=== PATIENT | male | born 1940 | race Caucasian/White ===

== ENCOUNTER → 2016-07-18 | Outpatient (CLI) | payer OTHER ==
[~2016-07-18] VITALS: Ht 177.8 cm; Wt 100.3 kg
[~2016-07-18] MED LIST: ASPI-232 PO; GLC/500 PO; LOSA50TA6 PO; SIMV80TA2 PO
[2016-07-18 13:03] VITALS: BP 155/78; PULSE 69; Ht 177.8 cm; Wt 100.3 kg
== END | disposition home or self-care (01) ==
LOC: C.NEUR 12:37
PROVIDERS: ATTEND Internal Medicine Pulmonary Disease
DX: G47.33 Obstructive sleep apnea (adult) (pediatric) (principal)

== ENCOUNTER → 2016-09-25 | Outpatient (CLI) | payer OTHER ==
[2016-09-26 06:22] LABS: ESTIMATED AVERAGE GLUCOSE 160 mg/dl; HA1C FLAG Normal (Normal)
== END | disposition home or self-care (01) ==
LOC: C.LAB1850 16:12
PROVIDERS: ATTEND Internal Medicine
DX: E11.9 Type 2 diabetes mellitus without complications (principal)

== ENCOUNTER → 2017-01-07 | Outpatient (CLI) | payer OTHER ==
[2017-01-07 13:19] LABS: BASO % 0.7 %; BASO ABS # 0.04 K/uL (0-0.2); COMPLETE YES; EOS % 5.4 %; HEMATOCRIT 44.6 % (42-52); LYMPH % 29.1 %; LYMPH ABS # 1.73 K/uL (1.2-3.4); MEAN CORPUSCULAR HEMOGLOBIN 31.2 pg (25-34); MEAN CORPUSCULAR HGB CONC 34.3 g/dl (32-36); MEAN PLATELET VOLUME 9.1 fL (7.4-10.4); MONO % 10.6 %; NEUT % 54.2 %; PLATELET COUNT 256 K/uL (130-400); WHITE BLOOD COUNT 5.95 K/uL (4.8-10.8)
[2017-01-07 13:34] LABS: URINE APPEARANCE CLEAR (CLEAR); URINE BILIRUBIN NEG (NEG); URINE COLOR YELLOW; URINE NITRITE NEG (NEG); URINE PH 5.5 (4.5-7.5); URINE SPECIFIC GRAVITY 1.024 (1.000-1.030); UROBILINOGEN NEG (NEG)
[2017-01-07 13:40] LABS: ALT/SGPT 30 U/L (12-78); AST/SGOT 23 U/L (15-37); BLOOD UREA NITROGEN 14 mg/dl (7-18); BUN/CREATININE RATIO 15.4 (10-20); CARBON DIOXIDE 27 mmol/L (21-32); CHLORIDE 108 mmol/L (98-107); CREATININE 0.92 mg/dl (0.60-1.40); GLUCOSE 117 mg/dl (70-99); POTASSIUM 4.1 mmol/L (3.5-5.1); SODIUM 141 mmol/L (136-145); URIC ACID 3.9 mg/dl (2.6-7.2)
[2017-01-07 13:43] LABS: ESTIMATED AVERAGE GLUCOSE 151 mg/dl; HA1C FLAG Normal (Normal)
[2017-01-07 13:48] LABS: MANUAL MICROSCOPIC REQUIRED? NO; REVIEW REQ? NO
[2017-01-07 13:51] LABS: CHOLESTEROL 134 mg/dl (0-200); CHOLESTEROL/HDL RATIO 3.2; HDL CHOLESTEROL 42 mg/dl; LDL CHOLESTEROL CALCULATED 69 mg/dl; TRIGLYCERIDES 115 mg/dl (0-150); VERY LOW DENSITY LIPOPROT CALC 23 mg/dl
== END | disposition home or self-care (01) ==
LOC: C.LAB1850 11:57
PROVIDERS: ATTEND Internal Medicine
DX: E11.9 Type 2 diabetes mellitus without complications (principal)

== ENCOUNTER → 2017-01-16 | Outpatient (CLI) | payer OTHER ==
[~2017-01-16] VITALS: Ht 175.3 cm; Wt 101.8 kg
[2017-01-16 14:10] VITALS: BP 164/73; PULSE 79; Ht 175.3 cm; Wt 101.8 kg
== END | disposition home or self-care (01) ==
LOC: C.NEUR 12:55
PROVIDERS: ATTEND Physician Assistant
DX: G47.33 Obstructive sleep apnea (adult) (pediatric) (principal)

== ENCOUNTER → 2017-04-10 | Outpatient (CLI) | payer OTHER ==
[2017-04-10 13:25] LABS: ESTIMATED AVERAGE GLUCOSE 171 mg/dl; HA1C FLAG Normal (Normal)
== END | disposition home or self-care (01) ==
LOC: C.LAB1850 10:39
PROVIDERS: ATTEND Internal Medicine
DX: E11.9 Type 2 diabetes mellitus without complications (principal)

== ENCOUNTER → 2017-07-17 | Outpatient (CLI) | payer OTHER ==
[2017-07-17 12:21] LABS: BASO % 0.4 %; BASO ABS # 0.02 K/uL (0-0.2); EOS % 4.5 %; EOS ABS # 0.25 K/uL (0-0.5); HEMOGLOBIN 15.7 g/dL (14.0-18.0); IG# 0.01 K/uL (0.00-0.02); LYMPH % 28.4 %; LYMPH ABS # 1.59 K/uL (1.2-3.4); MEAN CELL VOLUME 92.8 fL (80-100); MEAN CORPUSCULAR HEMOGLOBIN 32.4 pg (25-34); MEAN CORPUSCULAR HGB CONC 34.9 g/dl (32-36); MONO ABS # 0.56 K/uL (0.11-0.59); NEUT % 56.5 %; NEUT ABS # 3.17 K/uL (1.4-6.5); PLATELET COUNT 251 K/uL (130-400)
[2017-07-17 12:55] LABS: ALT/SGPT 33 U/L (12-78); AST/SGOT 19 U/L (15-37); BLOOD UREA NITROGEN 14 mg/dl (7-18); CALCIUM 8.8 mg/dl (8.5-10.1); CARBON DIOXIDE 27 mmol/L (21-32); CREATININE 1.07 mg/dl (0.60-1.40); GLUCOSE 134 mg/dl (70-99); POTASSIUM 3.8 mmol/L (3.5-5.1); SODIUM 139 mmol/L (136-145); URIC ACID 3.8 mg/dl (2.6-7.2)
[2017-07-17 12:56] LABS: HEMOGLOBIN A1C 7.1 % (4.5-5.6)
[2017-07-17 13:05] LABS: CHOLESTEROL 139 mg/dl (0-200); LDL CHOLESTEROL CALCULATED 75 mg/dl
--- NOTE | 2017-07-22 14:00 | CODING QUERY MEDICAL NECESSITY ---
CQSUPPORTING DIAGNOSIS NEEDED A supporting diagnosis is required for the test/procedure performed on this patient in order for us to be reimbursed by the patient's insurance. Please provide a supporting diagnosis for the following test/procedure listed below next to the test name along with your signature. *If there is no additional diagnosis for this patient that would support the following test/procedure please document that below next to the test/procedure. Test(s)/Procedure(s) that require a supporting diagnosis: DOS 07/17/17 GLYCATED HEMOGLOBIN TEST Provider Signature: Date: Thank you Daniella Hernandez Health Information Management Once completed, please kindly fax back to [phone] For questions please call [phone]
== END | disposition home or self-care (01) ==
LOC: C.LAB1850 09:54
PROVIDERS: ATTEND Internal Medicine
DX: I10 Essential (primary) hypertension (principal); E11.9 Type 2 diabetes mellitus without complications

== ENCOUNTER → 2017-07-23 | Outpatient (CLI) | payer OTHER ==
[~2017-07-23] VITALS: Ht 176.5 cm; Wt 100.7 kg
[2017-07-23 15:27] VITALS: BP 149/87; PULSE 60; Ht 176.5 cm; Wt 100.7 kg
== END | disposition home or self-care (01) ==
LOC: C.NEUR 15:05
PROVIDERS: ATTEND Physician Assistant
DX: G47.33 Obstructive sleep apnea (adult) (pediatric) (principal)

== ENCOUNTER → 2017-11-06 | Outpatient (CLI) | payer OTHER ==
[2017-11-06 13:57] LABS: HEMOGLOBIN A1C 7.9 % (4.5-5.6)
== END | disposition home or self-care (01) ==
LOC: C.LAB1850 11:36
PROVIDERS: ATTEND Internal Medicine
DX: K21.9 Gastro-esophageal reflux disease without esophagitis (principal)

== ENCOUNTER → 2018-02-26 | Outpatient (CLI) | payer OTHER ==
[2018-02-26 10:35] LABS: BASO % 0.1 %; BASO ABS # 0.01 K/uL (0-0.2); EOS % 3.6 %; HEMATOCRIT 45.2 % (42-52); HEMOGLOBIN 15.8 g/dL (14.0-18.0); IG# 0.01 K/uL (0.00-0.02); LYMPH % 18.5 %; LYMPH ABS # 1.53 K/uL (1.2-3.4); MEAN CELL VOLUME 90.8 fL (80-100); MEAN CORPUSCULAR HEMOGLOBIN 31.7 pg (25-34); MEAN PLATELET VOLUME 9.2 fL (7.4-10.4); MONO % 9.5 %; MONO ABS # 0.79 K/uL (0.11-0.59); NEUT % 68.2 %; NEUT ABS # 5.64 K/uL (1.4-6.5); PLATELET COUNT 266 K/uL (130-400); RED CELL DISTRIBUTION WIDTH CV 12.9 % (11.5-14.5); WHITE BLOOD COUNT 8.28 K/uL (4.8-10.8)
[2018-02-26 10:55] LABS: ALT/SGPT 31 U/L (12-78); AST/SGOT 20 U/L (15-37); BLOOD UREA NITROGEN 18 mg/dl (7-18); CALCIUM 8.6 mg/dl (8.5-10.1); CARBON DIOXIDE 25 mmol/L (21-32); CHOLESTEROL 127 mg/dl (0-200); CREATININE 1.01 mg/dl (0.60-1.40); GLUCOSE 147 mg/dl (70-99); LDL CHOLESTEROL CALCULATED 63 mg/dl; POTASSIUM 3.8 mmol/L (3.5-5.1); SODIUM 138 mmol/L (136-145); URIC ACID 3.7 mg/dl (2.6-7.2)
[2018-02-26 12:38] LABS: HEMOGLOBIN A1C 7.5 % (4.5-5.6)
== END | disposition home or self-care (01) ==
LOC: C.LAB1850 09:14
PROVIDERS: ATTEND Internal Medicine
DX: I10 Essential (primary) hypertension (principal)

== ENCOUNTER 2019-07-15 09:24 | Inpatient (IN) ==
--- NOTE | 2019-06-08 10:40 | PAT Medication Instructions ---
Medication Instructions Date of Service June 08, 2019 Home Medications aspirin 81 mg PO QAM losartan 50 mg PO HS metformin 500 mg PO BID simvastatin 80 mg PO HS warfarin 7.5 mg PO 2XWK warfarin 10 mg PO 5XWK ASK your prescriber and surgeon warfarin 7.5 mg PO 2XWK warfarin 10 mg PO 5XWK DO NOT take the morning of surgery metformin 500 mg PO BID Take morning of surgery With a small sip of water, OTHERWISE NOTHING TO EAT OR DRINK AFTER MIDNIGHT: aspirin 81 mg PO QAM Take evening before surgery losartan 50 mg PO HS metformin 500 mg PO BID simvastatin 80 mg PO HS Other Notes If you have any questions please call us at [phone] or [phone] or [phone] or [phone]
--- NOTE | 2019-06-13 09:14 | Anesthesiology Consultation ---
Date of Service June 13, 2019 Assessment & Plan (1) Encounter for pre-operative examination: - Check BSG, coags AM DOS - Medication instructions: ASA okay to continue perioperatively. Warfarin instructions per surgeon/prescriber. Chart Review Chart Review: Acceptable Risk for Surgery and Patient seen in Pre Admission Testing Teaching & Discussion Pre-Anesthesia Teaching/Discussion Notes: Instructed NPO after midnight before surgery,except medications with 15 cc of water. Medication instructions provided according to the PAT guidelines. History Surgery Operation Date: 07/15/19 10:40 Proposed Procedures p Right Total Knee Arthroplasty - Jace Vincent MD Height/Weight Height: 5 ft 9 in Weight: 99.7 kg Allergies Allergy/AdvReac Type Severity Reaction Status Date / Time esomeprazole AdvReac Unknown dizziness Unverified 06/13/19 09:33 omeprazole AdvReac Unknown dizziness Unverified 06/13/19 09:33 Medications Home Medications Medication Instructions Recorded Confirmed Last Taken aspirin 81 mg PO QAM 11/11/18 06/03/19 11/19/18 losartan 50 mg PO HS 11/11/18 06/03/19 11/22/18 metformin 500 mg PO BID 11/11/18 06/03/19 11/22/18 simvastatin 80 mg PO HS 11/11/18 06/03/19 11/22/18 warfarin 7.5 mg PO 2XWK 11/11/18 06/03/19 11/18/18 warfarin 10 mg PO 5XWK 11/11/18 06/03/19 11/18/18 Past Medical History Medical History 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" per PCP records Carotid artery stenosis diagnosed after CVA (2012) Diabetes mellitus, type 2 NIDDM Hearing deficit B/L [place] History of CVA (cerebrovascular accident) 2012 likely embolic origin but no definitive etiology found with "extensive workup"-- started on warfarin/mild memory loss Hyperlipidemia Hypertension Obesity Osteoarthritis Sleep apnea CPAP Exercise / Class Metabolic Activity III < 4 Walking/Shop/Light housework Past Family History Family History Other No family history of adverse response to anesthesia Past Surgical History Surgical History History of arthroscopy of right knee mensicus repair History of cardiac cath 2013 - no stents History of cholecystectomy History of colonoscopy colonoscopy: 11/23/18: MAC sedation at [facility] History of tonsillectomy History of wisdom tooth extraction Hx of vasectomy Status post uvulopalatopharyngoplasty Past Anesthesia History No Hx of Anesthesia Complications and No Family Hx of Anesthesia Complications History of PONV No Hx of PONV and No Hx of Motion Sickness Social History Smoking Status: Former smoker Do You Dip or Chew Tobacco: No Smoking End Date: 1972 Hx Alcohol Use: Yes Alcohol type: beer and wine alcohol intake frequency: a few times a month Hx Substance Use: No substance use type: does not use Review of Systems Hx reflux controlled. Patient denies chest pain, shortness of breath, cough, wheezing, palpitations. Physical Exam Vital Signs VITALS BP 134/65 P 64 TEMP 98.1 SP02 95%RA RESP 16 PHYSICAL Full neck and c-spine range of motion. Full TMJ range of motion. TMD 3 finger breaths Mallampati Score 3 Dentition: intact, upper permanent crown, several caps Lungs: clear throughout to auscultation Cardiac: regular rate and rhythm, no murmurs noted Spine: normal Carotid arteries: negative bruit Extremities: no edema Testing Laboratory Results 06/13/19 09:50 06/13/19 09:50 PT 19.7 Seconds (9.0-12.0) H 06/13/19 09:50 INR 2.0 (0.9-1.1) H 06/13/19 09:50 APTT 33.9 Seconds (21.0-31.0) H 06/13/19 09:50 Blood Type O Positive 06/13/19 09:50 Antibody Screen NEGATIVE 06/13/19 09:50 05/31/19 HGBA1C 8.1% (surgeon office made aware) Electrocardiogram Date: 06/13/19 Findings: + NSR @ (64) Chest X-Ray Date: 06/13/19 The heart is enlarged noting atherosclerotic calcification of the thoracic aorta. There is bibasilar atelectasis. The lungs and pleural spaces are otherwise clear. 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 Cardiomegaly with no active disease in the chest. Echocardiogram Date: 11/20/12 EF 60-65%. No RWMA. Grade I-II DD. Mild LAD. Mild cLVH. Other Testing Neck CTA: 11/24/12: Scattered plaque formation of the carotid system with no evidence for a significant stenotic process. Scattered atherosclerotic change of the vertebral basilar system with mild narrowing of the distal aspects of both vertebrals immediately proximal to the juncture with the basilar. A high-grade stenotic process of the major vessels of the neck including carotid and vertebral basilar systems is not felt to be present. Neck MRA: 11/22/12: 40% diameter stenosis involving the origin of the left internal carotid artery. No evidence of significant narrowing of the right internal carotid artery.
--- NOTE | 2019-06-13 10:23 | XRay Report ---
TWO VIEW CHEST CLINICAL HISTORY: Preoperative examination. FINDINGS: PA and lateral chest radiographs are compared to study dated 01/18/2016 and correlated with c hest CT dated 11/23/2012. The heart is enlarged noting atherosclerotic calcification of the thoracic a thomas. There is bibasilar atelectasis. The lungs and pleural spaces are otherwise clear. There is no p neumothorax. The skeletal structures are osteopenic. The bony thorax appears intact. Degenerative liliana nge and DISH is noted in the thoracic spine. Cholecystectomy clips are seen in the right upper quadra nt. IMPRESSION: Cardiomegaly with no active disease in the chest. Electronically signed by: Rio Lott M.D. 06/13/2019 10:22 AM
[2019-06-13 11:00] LABS: Basophils # (auto) 0.03 K/uL (0-0.2); Basophils % (auto) 0.5 %; Eosinophils # (auto) 0.35 K/uL (0-0.5); Eosinophils % (auto) 5.5 %; Hematocrit (blood only) 43.1 % (42-52); Hemoglobin 14.7 g/dL (14.0-18.0); Immature Granulocytes # (auto) 0.01 K/uL (0.00-0.02); Immature Granulocytes % (auto) 0.2 %; Lymphocytes # (auto) 1.23 K/uL (1.2-3.4); Lymphocytes % (auto) 19.3 %; Mean Corpuscular Hemoglobin 31.5 pg (25-34); Mean Corpuscular Hgb Conc 34.1 g/dL (32-36); Mean Corpuscular Volume 92.5 fL (80-100); Mean Platelet Volume 9.4 fL (7.4-10.4); Monocytes # (auto) 0.64 K/uL (0.11-0.59); Neutrophils # (auto) 4.12 K/uL (1.4-6.5); Neutrophils % (auto) 64.5 %; Platelet Count 269 K/uL (130-400); RDW Coefficient of Variation 13.2 % (11.5-14.5); RDW Standard Deviation 44.2 fL (36.4-46.3); Red Blood Count 4.66 M/uL (4.7-6.1); White Blood Count 6.38 K/uL (4.8-10.8)
[2019-06-13 11:11] LABS: BUN Creatinine Ratio 14.7 (10-20); Calcium 8.7 mg/dl (8.5-10.1); Creatinine Clr Calc Pharmacy 62.1 ml/min; Est GFR (Non-African American) 60.4; Potassium 4.6 mmol/L (3.5-5.1)
[2019-06-13 11:15] LABS: Partial Thromboplastin Ratio 1.3; Partial Thromboplastin Time 33.9 Seconds (21.0-31.0); Prothrombin Time 19.7 Seconds (9.0-12.0)
--- NOTE | 2019-07-03 23:39 | History and Physical Report ---
DATE OF ADMISSION: 07/15/2019 CHIEF COMPLAINT: Right knee pain and discomfort. 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 He has had a long history of right knee pain and discomfort that has gradually gotten worse over time. He injured it back in the when he had an open meniscectomy. Over the past several years, he has developed increased pain and discomfort in the medial side of his knee. He has had injections which recently have not helped much at all. He has got pain with every step. The more he walks, the more it hurts. It is really affecting his golf game and ability to place this in a recreational fashion. He has nighttime pain. He has difficulty going up and down steps. He would like to have his right knee fixed. PAST MEDICAL HISTORY: 1. Hypertension. 2. Type 2 diabetes x5 plus years. 3. Elevated cholesterol. 4. History of transient ischemic attack, on Coumadin. 5. Sleep apnea with CPAP machine. PAST SURGICAL HISTORY: Include: 1. Cholecystectomy. 2. Right open meniscectomy in the . 3. Sleep apnea. ALLERGIES: None. CURRENT MEDICINES: Include: 1. Aspirin once a day. 2. Metformin 500 mg twice a day. 3. Losartan 50 mg daily. 4. Simvastatin 80 mg. 5. Coumadin 10 mg 5 days a week and 7.5 mg on Tuesdays and . SOCIAL HISTORY: A 78-year-old male. He is . Former wrestler. He does not smoke. FAMILY HISTORY: Noncontributory. REVIEW OF SYSTEMS: Significant for TIAs without residual sequelae. He denies any current chest pain or shortness of breath. No history of DVT or PE. No known bleeding problems. He is diabetic. PHYSICAL EXAMINATION: GENERAL: Shows a healthy, pleasant, middle-aged male. Looks to be in pretty good health. HEENT: Benign. NECK: Supple, no lymphadenopathy. LUNGS: Clear to auscultation. HEART: Regular rate and rhythm. ABDOMEN: Soft, nontender, nondistended. EXTREMITIES: Grossly neurovascularly intact except as follows: Examination of the right knee reveals the patient walks with a slight bit of a limp. He has got varus alignment to his knee. He has got a well-healed medial incision which is oblique over the medial side of his knee. He has got bony hypertrophy medially. Small knee effusion. Range of motion is about 5 degrees short of full extension to 120 degrees of flexion. There is no clinical instability. No pain with hip motion. X-RAYS: X-rays of the right knee reviewed. It shows advanced right knee medial compartment DJD. He has got [id number]-[id number] disease in the medial compartment of his knee. He has got chondrocalcinosis laterally. He has got patellofemoral disease as well. ASSESSMENT: A 78-year-old gentleman with a history of open meniscectomy in the 1960s with advanced right knee degenerative joint disease. He has failed all conservative treatment and would like to have his right knee replaced. PLAN: We will take him to the operating room and do a right total knee replacement. The risks and benefits of this procedure were explained to the patient including but not limited to DVT, PE, , infection, neurological injury, vascular injury, bleeding problem, pain, limited range of motion, stiffness, failure to relieve symptoms, incomplete relief of symptoms, need for further surgery in the future, fracture, leg length inequality, nerve palsy, etc. The patient understands and desires to proceed. Informed consent was obtained. He is going to stop his Coumadin 5 days preoperatively. We will need a stat PT and INR the morning of surgery. He will hold his metformin the morning of surgery. We will use insulin sliding scale coverage in the hospital. He will bring his CPAP machine to the hospital as well. He is planning to be discharged to home. [facility] in his care. He might benefit from a brief rehab stay there at their facility.
[~2019-07-15 09:24] MED LIST changes: +ACETAMINOPHEN 500 MG TAB PO SCH; -ASPI-232 PO; +BUPIVACAINE 0.5 % 5 MG/1 ML PF 10ML VIAL ONE; +BUPIVACAINE LIPOSOME/PF 266 MG, BUPIVACAINE/EPINEPHRINE 50 ML, SODIUM CHLORIDE 0.9% 30 ... INFIL SCH; +CEFAZOLIN 2000MG 2,000 MG/15 ML SYR IV SCH; +EPINEPHrine INJ 1 MG/ML AMP ONE; +FAMOTIDINE 20 MG TAB PO SCH; +GABAPENTIN 300 MG CAP PO SCH; -GLC/500 PO; -LOSA50TA6 PO; +LR 500ML BOLUS, THEN 15ML/HR IV SCH; +LR 60ML/HR IV SCH; +METOCLOPRAMIDE HCL 10 MG TABLET PO SCH; +ROPIVACAINE 0.5% 5 MG/ML 30 ML VIAL ONE; -SIMV80TA2 PO; +TRANEXAMIC ACID 1,000 MG **IV Intra-op IV SCH
[2019-07-15 10:25] LABS: INR 1.1 (0.9-1.1); Partial Thromboplastin Time 26.8 Seconds (21.0-31.0); Prothrombin Time 11.1 Seconds (9.0-12.0)
[2019-07-15] MEDS ORDERED: TRANEXAMIC ACID / 0.7% NACL 1000MG/100ML BAG IV ONE (10:36)
--- NOTE | 2019-07-15 10:47 | History & Physical Bridge Note ---
Date of Service July 15, 2019 History & Physical Bridge Note I have examined the patient, reviewed the History & Physical and in the interval since the performance of the History & Physical I have noted the following changes of clinical significance: no changes noted
[2019-07-15] MEDS ORDERED: fentaNYL citrate 100 MCG/2 ML VIAL ONE (11:14)
[2019-07-15] MEDS ORDERED: MIDAZOLAM HCL 1 MG/ML 2ML VIAL ONE (11:14)
[2019-07-15] MEDS ORDERED: BUPIVACAINE LIPOSOME 1.3% 266 MG/20 ML VIAL ONE (13:28)
[2019-07-15] MEDS ORDERED: SODIUM CHLORIDE 0.9% PF 50 ML VIAL ONE (13:28)
[2019-07-15] MEDS ORDERED: BUPIVACAINE/EPINEPHRINE 0.25% 1:200,000 30 ML VIAL ONE (13:28)
[2019-07-15] MEDS ORDERED: BACITRACIN INJ 50,000 UNIT VIAL ONE (13:28)
[2019-07-15] MEDS ORDERED: PROPOFOL IV EMULSION 10 MG/ML 20 ML VIAL IV ONE (14:00)
--- NOTE | 2019-07-15 15:36 | Post Operative Brief Note ---
PG Immediate Post Op with CF Date of Surgery July 15, 2019 Pre & Post Diagnosis Operation Date: 07/15/19 12:10 Pre-Op Diagnosis: Right Knee Advanced Degenerative Joint Disease Post-Op Diagnosis: Right Knee Advanced Degenerative Joint Disease I identified the patient and participated in the time-out.: Yes Procedure Operation Date: 07/15/19 12:10 Actual Procedures p Right Total Knee Arthroplasty(Right) - Jace Vincent MD Surgeon Jace Vincent MD Boot Repairer Nabil, PAC Estimated Blood Loss 50 Findings Consistent with Post-Op Diagnosis Fluids 1500 cc Specimens Specimen Description: A. Right knee bone and tissue Drains Jackson Catheter (A 16 Telugu jackson catheter was inserted by NORIS Wade, without difficulty, clear yellow urine obtained, output to be monitored by Anesthesia.) Anesthesia Type Spinal MAC Complications none Disposition Disposition: Recovery Room
[2019-07-15] MEDS ORDERED: ATROPINE SULFATE 0.1 MG/ML 10ML SYR IV PRN (16:16)
[2019-07-15] MEDS ORDERED: ePHEDrine sulfate 50 MG/ML AMP IV PRN (16:16)
--- NOTE | 2019-07-15 16:17 | Anesthesiology Progress Note ---
Date of Service July 15, 2019 Anesthesia Post Procedure Vital Signs Vital Signs: Temp Pulse Pulse Resp BP Pulse Ox 07/15/19 16:10 63 13 115/60 94 07/15/19 16:00 60 10 L 126/75 99 07/15/19 15:50 66 16 129/66 99 07/15/19 15:40 35.7 C L 69 18 117/59 L 97 07/15/19 10:25 36.9 C 59 L 18 157/70 H 95 Transfer of Care Handoff Completed per policy Notes Mental Status: alert / awake / arousable Patient Amnestic to Procedure: Yes Nausea / Vomiting: adequately controlled Pain: adequately controlled Airway Patency, RR, SpO2: stable & adequate BP & HR: stable & adequate Hydration State: stable & adequate Neuraxial Anesthesia: was administered and sensory block is resolving Anesthetic Complications: no major complications apparent
--- NOTE | 2019-07-15 16:18 | XRay Report ---
RIGHT KNEE 2 VIEWS History: Right total knee arthroplasty. Degenerative arthritis. Postop. FINDINGS: The patient is status post a right total knee arthroplasty. The hardware is intact. No frac ture or dislocation. Skin kyra are in place. IMPRESSION: Right total knee arthroplasty. No evidence for hardware complication. ACT 112: Negative or not required by law. Electronically signed by: Eugenio Holland M.D. 07/15/2019 4:16 PM
[2019-07-15] MEDS ORDERED: MAGNESIUM HYDROXIDE SUSP 30 ML UDC PO PRN (16:53)
[2019-07-15] MEDS ORDERED: TAMSULOSIN HCL 0.4 MG CAP PO PRN (16:53)
[2019-07-15] MEDS ORDERED: ALUMINUM/MAGNESIUM SUSP 30 ML UDC PO PRN (16:53)
[2019-07-15] MEDS ORDERED: WARFARIN SOD 7.5 MG TAB PO ONE (16:53)
[2019-07-15] MEDS ORDERED: GLUCOSE 10 TABS/TUBE PO PRN (16:53)
[2019-07-15] MEDS ORDERED: METOCLOPRAMIDE HCL INJ 5 MG/ML 2 ML VIAL IV PRN (16:53)
[2019-07-15] MEDS ORDERED: NALOXONE HCL 0.4 MG/1 ML VIAL/CARP IV PRN (16:53)
[2019-07-15] MEDS ORDERED: ONDANSETRON INJ 2 MG/ML 2 ML VIAL IV PRN (16:53)
[2019-07-15] MEDS ORDERED: GLUCOSE 40% GEL 15 GM TUBE PO PRN (16:53)
[2019-07-15] MEDS ORDERED: OXYCODONE HCL IR 5 MG TAB (IMMEDIATE RELEASE) PO PRN (16:53)
[2019-07-15] MEDS ORDERED: bisacodyL 10 MG SUPP PR PRN (16:53)
[2019-07-15] MEDS ORDERED: CARBOHYDRATES FOR HYPOGLYCEMIA PO PRN (16:53)
[2019-07-15] MEDS ORDERED: HYDROmorphone INJ 0.5 MG/0.5 ML SYR IV PRN (16:53)
[2019-07-15] MEDS ORDERED: DEXTROSE 50% 50 ML SYRINGE IV PRN (16:53)
[2019-07-15] MEDS ORDERED: GLUCAGON FOR INJ 1 MG VIAL SQ PRN (16:53)
[2019-07-15] MEDS ORDERED: PHARMACY GLYCEMIC MGMT CONSULT PRN (17:14)
--- NOTE | 2019-07-15 17:41 | Operative Report ---
Post Operative Report Pre & Post Diagnosis Operation Date: 07/15/19 12:10 Pre-Op Diagnosis: Right Knee Advanced Degenerative Joint Disease Post-Op Diagnosis: Right Knee Advanced Degenerative Joint Disease I identified the patient and participated in the time-out.: Yes Procedure Operation Date: 07/15/19 12:10 Actual Procedures p Right Total Knee Arthroplasty(Right) - Jace Vincent MD Surgeon Jace Vincent MD [employer] Banker Nabil, PAC Estimated Blood Loss 50 Findings Consistent with Post-Op Diagnosis Operative findings revealed advanced right knee DJD with extensive grade 4 [id number] disease of the medial femoral condyle medial tibial plateau. He had a fixed varus deformity to his knee. Osteophytes primarily in the medial compartment of his knee. He had scattered grade 4 changes of the patellofemoral joint as well as lateral compartment. Large knee joint effusion. He had a chronic ACL deficiency. Fluids 1500 cc Specimens Right knee sent for pathology. Drains None. Anesthesia Type Spinal MAC Complications none Disposition Accompanied Patient To Recovery: No Disposition: Recovery Room Indications Patient is a 78-year-old gentleman with a long history of right knee problems. He underwent a open meniscectomy about 50 years ago. He has had persistent and progressive increased pain discomfort in his right knee despite conservative care over the years. X-ray showed advanced DJD. Was felt he had a chronic ACL deficiency as well. Patient is indicated for surgical treatment. Description of Procedure Operative implants consist of: 1. Biomet Vanguard size 72.5 right posterior by femoral component. 2. A Biomet size 79 tibial tray. 3. 12 mm posterior box polyethylene insert. 4. 31 x 8 all poly-patella. Patient is taken to the operating room identified and placed on the operating table supine position protectors were properly padded. IV antibiotics were provided by the anesthesia team. Hammond catheter was placed in sterile fashion. Right thigh turn was then placed in the right lower extremities and prepped and draped in usual sterile fashion. Breath right leg was elevated exsanguinated use of an Esmarch and the tourniquet was placed at 300 mmHg. An anterior approach to the right knee was then performed the longitudinal incision centered over the patella. Sharp dissection was cut through subcutaneous tissue down below the extensor mechanism. A medial parapatellar arthrotomy incision was made. Some subperiosteal dissection was carried out medially. The fat pad was resected from each patella tendon. The lateral patellofemoral ligament was released. Patella was subluxated laterally knee was flexed. The osteophytes were taken off distal femur. The ACL was absent. PCL was released from the distal femur and the tibia subluxated anteriorly. The external tibial alignment jig was then placed in the interface the tibia and adjusted 14 mm medially. Proximal tibial cut was made to move about 3 to 4 mm of bone from the most efficient aspect the medial tibial plateau. Some osteophytes taken off medial and posterior medially. The tibia was sized to a size 79. Attention drawn to the femur. The distal femur was entered with a sharp drill. Intramedullary canal was sucti on. A right 6 degree valgus cutting guide was placed. Distal femoral cutting block was pinned in place but distal femoral cut was made to take an additional 3 mm of bone off distal femur. Femur was then sized to a size 72.5. The AP cutting block was pinned parallel to the epicondylar axis which was 3 degrees of external rotation. The anterior cut, anterior chamfer, posterior cut, posterior chamfer cuts were made. Box cutting guide was placed and just slightly lateral and box cut was made. The knee was flexed. The remnants of the medial lateral menisci were excised. The osteophytes were taken off the posterior aspect of the femur. A trial femoral component was placed. The tibial tray was pinned in maximum external rotation and the drill and stem punch were used to create defect in the proximal tibia for the tibial tray. The knee was then trialed and the 12 mm insert fit most appropriately. Attention drawn the patella. The patella was cleaned of all soft tissues. Patella thickness measured 28 mm in thickness. It was cut down to a 15 mm. Was sized to a size 31 patella. The patella was very oblong. The locals were drilled for the patella component. The lateral osteophyte was removed. Patella button was placed. Knee was taken through range of motion patella tracked nicely with no thumbs test. Attention drawn toward placing the permanent components. All trial components were removed. Bone plug was placed in the distal femur limit blood loss. A double batch Palacos G cement was mixed. Biomet Vanguard size 72.5 right posterior by femoral component, size 79 tibial tray, 12 mm posterior bite polyethylene insert, and a 31 x 8 all poly-patella were then cemented in place. Knees brought in full extension total cement hardened. Final cement check was then performed. Pericapsular tissues were injected with a total of 100 cc of combination of 20 cc of Exparel, 30 cc normal saline, 50 cc of quarter percent Marcaine with epinephrine. Patient did receive 1 g of tranexamic acid. The term was then let down for final tourniquet time of 58 minutes. Hemostasis assured use electrocautery. The extensor mechanism then closed with combination 1 PDS suture #1 Vicryl suture in a [id number] fashion. The extensor mechanism was checked and found to be intact and the subcutaneous tissues then closed with 2 Dexon suture in a buried interrupted fashion skin was closed with skin kyra. Leg was then cleaned dried and sterile dressing composed of Xeroform, 4 x 4's, sterile cast padding, Americo bandage were applied. Patient transferred to the recovery room in stable condition. Patient tolerated procedure well no complications. I attest to the content of the Intraoperative Record and any orders documented therein. Any exceptions are noted below.
--- NOTE | 2019-07-15 17:53 | Pharmacy Report ---
Glycemic Control Consultation - Date of Service July 15, 2019 - Scope Scope: Glycemic Pharmacist consulted by Dr. Vincent on 07/15/2019 for glycemic control and to write orders per [facility] inpatient glycemic control protocol - Objective Weight: 99.798 kg Accuchecks BSG (last 24hrs): 07/15/19 07/15/19 07/15/19 09:57 15:48 17:35 POC Glucose 173 H 124 H 128 H - Recent Pertinent Medications Outpatient Anti-diabetic Regimen: * Metformin 500 mg PO BID * A1c = 8.1 % 05/31/19 The patient is currently receiving: * No insulin ordered prior to consult Risk Factors for Insulin Resistance: * Recent Surgery: * POD #0 R TKA * Diet: * T2DM - Assessment & Plan Assessment & Plan: ASSESSMENT: * 78 yo M admitted on 07/15/2019 following R TKA * PMHx significant for ASCVD w/ h/o TIA, HLD, HTN, T2DM * Recent A1c from 05/31/19 was 8.1% * Based on patient's age and comorbidities, believe an appropriate A1c goal would be 7.5% - 8.0% * Patient did not receive any pre-operative/intra-operative/post-operative steroids PLAN FOR INPATIENT GLYCEMIC CONTROL: * Pt is maintained on oral antidiabetic agents as an outpatient * Oral agents are not recommended for inpatient use d/t drug interactions, changing PO intake, and difficulty titrating for acute hyper/hypoglycemia. ADA recommends re-initiating outpatient oral agents 1-2 days prior to discharge if/when appropriate if they were held on admission. * Will hold oral agents for admission and utilize SQ basal bolus insulin regimen which is the recommended regimen for inpatient glycemic control. * Will initiate weight based insulin dosing for insulin artemio patient and titrate based on BSG trends. * Basal insulin * No basal insulin based on A1c and pre-operative/post-operative BSG * Bolus insulin * NovoLog per scale ACHS or Q6hrs while NPO * Goal Range: Low 110 mg/dL - High 140 mg/dL * Correction Factor: 25 mg/dL/unit * Nutritional / Prandial insulin per carb ratio of 1 unit per 8 grams CHO consumed DISCHARGE RECOMMENDATIONS: * Pending at this time * Please note that the plan above was derived based on current level of insulin resistance and hospital stress. These recommendations are appropriate for inpatient admission only. Plan of care upon discharge will need to be reassessed to avoid potential outpatient hypo/hyperglycemia. Thank you.
[2019-07-15] MEDS: ASCORBIC ACID 500 MG TAB PO SCH (17:54)
[2019-07-15] MEDS: FERROUS GLUCONATE 324 MG TAB PO SCH (17:54)
[2019-07-15] MEDS: KETOROLAC TROMETHAMINE 15 MG/ML VIAL IV SCH ×2 (17:58→23:56)
[2019-07-15] MEDS: SODIUM CHLORIDE 0.9% 1000ML 1,000 ML IV SCH (18:03)
[2019-07-15] MEDS: LOSARTAN POTASSIUM 50 MG TAB PO SCH (20:18)
[2019-07-15] MEDS: DOCUSATE SODIUM 100 MG CAP PO SCH (20:19)
[2019-07-15] MEDS: SIMVASTATIN 80 MG TAB PO SCH (20:19)
[2019-07-15] MEDS: SENNA 8.6 MG TAB PO SCH (20:19)
[2019-07-15] MEDS: CEFAZOLIN 2000MG 2,000 MG/15 ML SYR IV SCH (21:16)
[2019-07-15] MEDS: TAPENTADOL HCL ER 50 MG TABCR PO SCH (21:16)
[2019-07-15] MEDS: ACETAMINOPHEN 500 MG TAB PO SCH (21:16)
[2019-07-15] MEDS: INSULIN ASPART 100 UNITS/ML 3 ML PEN SC SCH (21:25)
[2019-07-16] MEDS: SODIUM CHLORIDE 0.9% 1000ML 1,000 ML IV SCH (03:51)
[2019-07-16] MEDS: CEFAZOLIN 2000MG 2,000 MG/15 ML SYR IV SCH (03:53)
[2019-07-16] MEDS: KETOROLAC TROMETHAMINE 15 MG/ML VIAL IV SCH ×4 (06:09→23:48)
[2019-07-16] MEDS: ACETAMINOPHEN 500 MG TAB PO SCH ×3 (06:09→21:14)
[2019-07-16 06:52] LABS: Hematocrit (blood only) 40.2 % (42-52); Hemoglobin 13.6 g/dL (14.0-18.0); Mean Corpuscular Hgb Conc 33.8 g/dL (32-36); Mean Corpuscular Volume 91.6 fL (80-100); Mean Platelet Volume 9.2 fL (7.4-10.4); Platelet Count 248 K/uL (130-400); RDW Coefficient of Variation 12.7 % (11.5-14.5); RDW Standard Deviation 42.7 fL (36.4-46.3); Red Blood Count 4.39 M/uL (4.7-6.1); White Blood Count 10.17 K/uL (4.8-10.8)
[2019-07-16 07:00] LABS: INR 1.1 (0.9-1.1); Prothrombin Time 11.1 Seconds (9.0-12.0)
[2019-07-16 07:21] LABS: BUN Creatinine Ratio 16.1 (10-20); Calcium 8.1 mg/dl (8.5-10.1); Creatinine Clr Calc Pharmacy 60.5 ml/min; Est GFR (African American) 67.9; Est GFR (Non-African American) 58.6; Potassium 4.1 mmol/L (3.5-5.1)
--- NOTE | 2019-07-16 08:57 | Progress Note ---
DATE: 07/16/2019 SUBJECTIVE: A 78-year-old gentleman postop day 1 from a right knee replacement. He is doing well. His pain is controlled. No chest pain, no shortness of breath. Had a little bit of dizziness when first getting up. No other symptoms. OBJECTIVE: VITAL SIGNS: Temperature 36.8. Vital signs stable. GENERAL: Shows a pleasant, elderly male. He is sitting up in bed and eating breakfast. Looks comfortable. LUNGS: Clear to auscultation. HEART: Has a regular rate and rhythm. ABDOMEN: Soft, nontender, nondistended. EXTREMITIES: Grossly neurovascularly intact except as follows: Examination of the right leg reveals the leg to be well aligned. Dressing is clean, dry, and intact. He can dorsiflex and plantarflex his foot appropriately. He is neurologically intact. He has got a good distal pulse. LABORATORY DATA: Hemoglobin is 13.6. Hematocrit is 40.2. Electrolytes are stable. INR is 1.1. ASSESSMENT: A 78-year-old gentleman postop day 1 from a right knee replacement. He is doing well. His pain is controlled. His hemoglobin is stable. He is neurologically intact. PLAN: 1. DVT prophylaxis including thigh-high TEDs, SCDs, and is back on his Coumadin. We will try and load him and get him close to a therapeutic range before discharge. 2. PT/OT. Weight bear as tolerated. Right total knee protocol. 3. Pain control, doing well with current pain regimen. 4. Diabetes, continue insulin sliding scale coverage. 5. Pain control, continue current pain regimen. Seems to be doing well with this. 6. Disposition. He is hoping to be discharged to home with some home health once medically stable and adequately recovered.
[2019-07-16] MEDS: ASPIRIN 81 MG ECTAB PO SCH (09:21)
[2019-07-16] MEDS: ASCORBIC ACID 500 MG TAB PO SCH ×2 (09:21→16:16)
[2019-07-16] MEDS: FERROUS GLUCONATE 324 MG TAB PO SCH ×2 (09:21→16:16)
[2019-07-16] MEDS: METFORMIN HCL 500 MG TAB PO SCH ×2 (09:21→17:10)
[2019-07-16] MEDS: MULTIVITAMIN TAB PO SCH (09:21)
[2019-07-16] MEDS: DOCUSATE SODIUM 100 MG CAP PO SCH ×2 (09:23→21:12)
[2019-07-16] MEDS: INSULIN ASPART 100 UNITS/ML 3 ML PEN SC SCH ×4 (09:26→21:10)
[2019-07-16] MEDS: TAPENTADOL HCL ER 50 MG TABCR PO SCH ×2 (09:33→21:21)
--- NOTE | 2019-07-16 14:29 | Pharmacy Report ---
Pharmacy Glycemic Short Note 2 - Date of Service July 16, 2019 - Glycemic Short BSG Results (Last 24 hours): 07/15/19 07/15/19 07/15/19 15:48 17:35 20:46 Glucose POC Glucose 124 H 128 H 159 H 07/16/19 07/16/19 07/16/19 06:05 06:18 08:14 Glucose 158 H POC Glucose 166 H 249 H 07/16/19 12:02 Glucose POC Glucose 224 H OUTPATIENT ANTIDIABETIC REGIMEN: * Metformin * A1c = 8.1% on 05/31/19 ASSESSMENT: * 78yo T2DM male s/p R TKA * 07/15/19: POD #0, oral agents on hold, initiated on weight based bolus insulin monotherapy * 07/16/19: Outpatient Metformin resumed and CR stopped. Unfortunately, pt has been hyperglycemic all morning. BSGs elevated w/o basal insulin. Will add low dose basal and resume CR per weight based dosing. * Goal is to maintain BSGs < 200 mg/dl (ideally <150 mg/dl) to prevent post op complications. PLAN FOR INPATIENT GLYCEMIC CONTROL: * Hold outpatient oral diabetes medications * Basal insulin * Lantus 10 units SQ Q24hrs * Bolus insulin * NovoLog per scale ACHS or Q6hrs while NPO * Goal Range: Low 110 mg/dL - High 140 mg/dL * Correction Factor: 25 mg/dL/unit * Nutritional / Prandial insulin per carb ratio of 1 unit per 8 grams CHO consumed PLAN FOR DISCHARGE: * Recommend maximizing metformin dosing to achieve goal A1c <7% * Recommend increasing metformin dose by 500mg weekly, up to 2,000 mg/day PO, given in divided doses. Doses above 2000 mg/day may be better tolerated if divided and given 3 times per day with meals. Max: 2,550 mg/day PO, in divided doses
[2019-07-16] MEDS ORDERED: WARFARIN SOD 6 MG TAB PO ONE (16:00)
[2019-07-16] MEDS ORDERED: INSULIN GLARGINE SOLOSTAR 100 UNITS/ML 3 ML PEN SC SCH (16:30)
[2019-07-16] MEDS: LOSARTAN POTASSIUM 50 MG TAB PO SCH (21:13)
[2019-07-16] MEDS: SIMVASTATIN 80 MG TAB PO SCH (21:14)
[2019-07-16] MEDS: SENNA 8.6 MG TAB PO SCH (21:14)
[2019-07-17] MEDS: KETOROLAC TROMETHAMINE 15 MG/ML VIAL IV SCH (05:07)
[2019-07-17] MEDS: ACETAMINOPHEN 500 MG TAB PO SCH (05:07)
[2019-07-17 06:43] LABS: INR 1.4 (0.9-1.1); Prothrombin Time 13.6 Seconds (9.0-12.0)
[2019-07-17] MEDS: DOCUSATE SODIUM 100 MG CAP PO SCH (07:50)
[2019-07-17] MEDS: METFORMIN HCL 500 MG TAB PO SCH (07:50)
[2019-07-17] MEDS: INSULIN ASPART 100 UNITS/ML 3 ML PEN SC SCH (07:51)
[2019-07-17] MEDS: ASPIRIN 81 MG ECTAB PO SCH (07:51)
[2019-07-17] MEDS: FERROUS GLUCONATE 324 MG TAB PO SCH (07:51)
[2019-07-17] MEDS: ASCORBIC ACID 500 MG TAB PO SCH (08:45)
[2019-07-17] MEDS: TAPENTADOL HCL ER 50 MG TABCR PO SCH (08:45)
[2019-07-17] MEDS: MULTIVITAMIN TAB PO SCH (08:45)
--- NOTE | 2019-07-17 08:47 | Progress Note ---
DATE: 07/17/2019 SUBJECTIVE: A 78-year-old gentleman postop day 2 from right knee replacement. He is doing remarkably well. Pain is controlled. He is getting around quite well with a walker. No chest pain or shortness of breath. Not feeling dizzy or lightheaded. OBJECTIVE: VITAL SIGNS: Temperature 36.6. Vital signs stable. GENERAL: Shows a pleasant, elderly male. He is walking around his room quite well with a walker. EXTREMITIES: Examination of the right leg reveals the dressing to be clean, dry and intact. Some mild swelling. Calf is soft and supple. He is neurologically intact. LABORATORY DATA: INR is 1.4 this morning. ASSESSMENT: A 78-year-old gentleman postop day 2 from right knee replacement. He is doing pretty well. Pain is controlled. He is neurologically intact. PLAN: 1. DVT prophylaxis including thigh-high TEDs, SCDs, and Coumadin. INR is not quite therapeutic, but we will continue to dose him on that. 2. PT/OT. Weight bear as tolerated. Right total knee protocol. 3. Pain control, doing well with current pain regimen. 4. Disposition: Plan to discharge to home with some home health later today.
[2019-07-17] MEDS ORDERED: INSULIN GLARGINE SOLOSTAR 100 UNITS/ML 3 ML PEN SC SCH (09:00)
[2019-07-17] MEDS ORDERED: WARFARIN SOD 10 MG TAB PO ONE (16:00)
--- NOTE | 2019-07-19 01:36 | Discharge Summary ---
ADMITTING PHYSICIAN AND SURGEON: Dr. Jace Vincent. ADMITTING DIAGNOSIS: Right knee degenerative joint disease. SURGERY PERFORMED: Right total knee arthroplasty. SECONDARY DIAGNOSES: Hypertension, type 2 diabetes, elevated cholesterol, history of transient ischemic attack, sleep apnea. CONSULTS: None obtained. HISTORY AND PHYSICAL EXAMINATION: Well documented in the patient's chart. HOSPITAL COURSE: The patient was admitted on 07/15/2019 and underwent total knee arthroplasty, tolerated the procedure well. There were no complications. He was transferred to the PACU postop and later to the orthopedic floor for further care. He was given Ancef for antibiotic prophylaxis, XOCHITL stockings, SCDs and Coumadin for DVT prophylaxis. INR was monitored daily and Coumadin dosed accordingly. Hemoglobin, hematocrit and vital signs were monitored during his hospital stay and remained stable, did not require any blood transfusions. There were no complications. On postoperative day 2, he was tolerating a diabetic diet. Pain was controlled with oral pain medicine. He was participating in physical therapy. Postop day 2, he was discharged home, set up with home health services, he was given printed discharge instructions as well as new prescriptions for Extra Strength Tylenol and oxycodone. Continue his home medications, continue physical therapy, weightbearing as tolerated, XOCHITL stockings. Follow up in approximately 2 weeks postop or sooner if there are any problems or concerns.
== END 2019-07-17 11:04 | disposition home or self-care (01) | DRG 470 ==
LOC: ASU 09:24 → 3W 15:43

== ENCOUNTER 2023-07-15 10:07 | Observation (INO) ==
--- NOTE | 2023-07-14 13:24 | Anesthesiology Consultation ---
Date of Service July 14, 2023 Assessment & Plan (1) Encounter for pre-operative examination: Plan - Patient took oral semaglutide and was re-scheduled to 07/15/23. From previous PAT note for this surgery: - Check BSG, coags AM DOS (warfarin instructions per surgeon/prescriber- no plan for lovenox bridging at this point per patient. He was advised to contact PAT if decision for lovenox bridging) - Outpatient joint assessment: Pt currently scheduled for inpatient pathway. If surgeon requests review for outpatient joint pathway, patient is not recommended candidate for outpatient joint program from anesthesia standpoint. - S/P Right TKA (07/15/19): SAB (x2 attempts) at L3-4 + PNB at [facility] - Cardiology visit (01/02/23 S): "Chart history of ASCVD with catheterization in 2012 revealing nonobstructive disease per documentation (no report available for review), nonischemic Lexiscan nuclear stress testing on January 01, 2023.. Remote history of TIA/CVA, left middle cerebral artery distribution, 2012, prescribed chronic anticoagulation and aspirin 81 mg/day.. Remote TIA/stroke. Moderate (50-57%) left internal carotid artery stenosis via November 12, 2022 CTA Neck.. Hypertension, borderline control.. Possible future sinus surgery and elective knee replacement.. Recommendations/plan: Continue aspirin, statin, anticoagulation, and the current antihypertensive regimen. Non pharmacologic treatment of hypertension discussed. If blood pressure is elevated on follow-up would add a 3rd antihypertensive agent, perhaps carvedilol 3.125 mg twice per day. [facility] intensification of lipid lowering therapy in October 2022, LDL goal less than 70 mg/dL. No overt cardiac contraindications to elective surgery, at at least a moderate risk." - PCP visit (02/06/23 NM): "Hypertension, preferred goal less than 130/80.. losartan 100 mg daily.. Amlodipine 5 mg daily.. Continue dietary control, low- salt diet and physical activity as tolerated.. Reviewed cardiology progress notes.. History of TIA, management with long-term use anticoagulation started in 2012, mild memory impairment.. Clinically stable, continue warfarin.. Adjust Coumadin and management for future surgery.. ASCVD with stenosis of left internal carotid artery, allergy progress Notes.. CTA December 2022.. No change in medication" - S/P nasal sinus endoscopy, maxillary antrostomy, ethmoidectomy with front sinus dilation (04/13/23): MAC#4, ETT 7.5, Grade 1 view, Attempts x1/atraumatic at [facility] (records scanned into [employer]). - Per nondestructive tester on 07/14/2023: No known infectious disease contacts, current infectious disease symptoms in past 10 days or COVID positive test result in the past 30 days. Chart Review Chart Review: Acceptable Risk for Surgery and Patient NOT seen in Pre Admission Testing History Surgery Operation Date: 07/15/23 12:00 Proposed Procedures p Left Total Knee Arthroplasty - Jace Vincent MD Height/Weight Height: 5 ft 9 in Weight: 90 kg Allergies Allergy/AdvReac Type Severity Reaction Status Date / Time azelastine Allergy Rash Verified 07/14/23 13:18 budesonide Allergy Rash Verified 07/14/23 13:18 esomeprazole AdvReac Unknown dizziness Verified 07/14/23 13:18 omeprazole AdvReac Unknown dizziness Verified 07/14/23 13:18 Medications Home Medications Medication Instructions Recorded Confirmed Last Taken aspirin 81 mg tablet,delayed 81 mg PO QAM 11/11/18 07/14/23 07/13/23 21:00 release lancets 28 gauge (FreeStyle #2 Boxes 12/19/20 07/14/23 Unknown Lancets) CPAP Machine #1 ea 01/22/21 07/14/23 Unknown blood-glucose meter (FreeStyle #1 ea 06/03/21 07/14/23 Unknown Lite Meter kit) sodium chloride 0.65 % nasal spray 2 spray intranasal BID #44 mL 10/30/22 07/14/23 07/14/23 08:00 aerosol (Saline Nasal) sodium chloride-aloe vera nasal 1 applic topical HS PRN dry nasal 10/30/22 07/14/23 07/14/23 08:00 gel ([place] Saline nasal gel) passages #14.1 grams warfarin 5 mg tablet 7.5 - 10 mg PO UD #180 tabs 11/06/22 07/14/23 07/08/23 08:00 blood sugar diagnostic (FreeStyle #2 Boxes 12/01/22 07/14/23 Unknown Lite Strips) metformin 500 mg tablet,extended 1,000 mg (2 x 500 mg) PO BID #360 01/16/23 07/14/23 07/11/23 20:00 release 24 hr tabs amlodipine 5 mg tablet 5 mg PO HS 06/09/23 07/14/23 07/13/23 21:00 cholecalciferol (vitamin D3) 25 25 mcg PO HS 06/09/23 07/14/23 07/13/23 21:00 mcg (1,000 unit) capsule fluticasone propionate 50 2 spray intranasal QAM 06/09/23 07/14/23 07/14/23 08: 00 mcg/actuation nasal spray,suspension oxymetazoline 0.05 % nasal spray 2 spray intranasal Q12H PRN 06/09/23 07/14/23 Unknown Congestion rosuvastatin 10 mg tablet 10 mg PO QAM 06/09/23 07/14/23 07/14/23 08:00 semaglutide 7 mg tablet 7 mg PO QAM 06/09/23 07/14/23 07/14/23 08:00 diclofenac sodium 1 % topical gel 2 g topical TID PRN knee pain #100 06/10/23 07/14/23 Unknown (Voltaren Arthritis Pain) grams losartan 100 mg tablet 100 mg PO QAM #90 tabs 06/24/23 07/14/23 07/14/23 08:00 acetaminophen 500 mg tablet 1,000 mg (2 x 500 mg) PO TID pain 07/11/23 07/14/23 Unknown (Tylenol Extra Strength) 30 days #180 tabs cefadroxil 500 mg capsule 500 mg PO BID 7 days #14 caps 07/11/23 07/14/23 Unknown ondansetron 4 mg disintegrating 4 mg PO Q8 PRN nausea #20 tabs 07/11/23 07/14/23 Unknown tablet oxycodone 5 mg tablet 5 - 10 mg (1 - 2 x 5 mg) PO Q6 PRN 07/11/23 07/14/23 Unknown pain #40 tabs sennosides 8.6 mg tablet (Senokot) 8.6 mg PO BID prevent constipation 07/11/23 07/14/23 07/14/23 08:00 14 days #28 tabs tamsulosin 0.4 mg capsule (Flomax) 0.4 mg PO DAILY #7 caps 12/07/14/23 07/13/23 21:00 famotidine 20 mg tablet 20 mg PO BID 07/14/23 07/14/23 07/14/23 08:00 Past Medical History Medical History Nocturnal hypoxemia Per records CVA (cerebral vascular accident) TIA/CVA (2012)- "likely embolic origin but no definitive etiology found" with "extensive workup" Taking warfarin/mild memory loss Sleep apnea CPAP (compliant) Erectile dysfunction Diabetes mellitus, type 2 NIDDM Constipation using metamucil currently Lumbar spondylosis Carotid artery stenosis Dx after CVA (2012) Obesity Arteriosclerotic cardiovascular disease (ASCVD) Per 12/2022 cardiology visit note, "Chart history of ASCVD with catheterization in 2012 with nonobstructive disease per documentation (no report available for review)" Chronic maxillary sinusitis No recent issues, at baseline Osteoarthritis Hearing deficit B/L [place] Hypertension Past Family History Family History Other No family history of adverse response to anesthesia Past Surgical History Surgical History Hx of endoscopic sinus surgery Status post right knee replacement History of cataract surgery R/L History of total right knee replacement Right TKA (07/15/19): SAB (x2 attempts) at L3-4 + PNB at [facility] History of arthroscopy of right knee mensicus repair Hx of vasectomy History of cholecystectomy History of colonoscopy colonoscopy: 11/2018 "No further screening recommended" History of wisdom tooth extraction Status post uvulopalatopharyngoplasty History of tonsillectomy Social History Smoking Status: Former smoker tobacco type: cigarettes Do You Dip or Chew Tobacco: No Hx Alcohol Use: Yes Alcohol type: beer and wine alcohol intake frequency: a few times a month (1 beer/week) Hx Substance Use: No substance use type: does not use Lab Results Anesthesia Preop Results Results Anesthesia Widget: WBC 9.99 K/ul (4.8-10.8) 06/15/23 Hgb 13.9 g/dl (14.0-18.0) L 06/15/23 Hct 40.7 % (42.0-52.0) L 06/15/23 Plt 397 K/uL (130-400) 06/15/23 Na 138 mmol/L (136-145) 06/15/23 K 4.0 mmol/L (3.5-5.1) 06/15/23 Cl 106 mmol/L (98-107) 06/15/23 CO2 25 mmol/L (21-32) 06/15/23 BUN 20 mg/dl (6-23) 06/15/23 Creat 1.04 mg/dl (0.6-1.4) 06/15/23 Glucose Level 183 mg/dl (70-99(Fasting)) H 06/15/23 POC Glucose 126 mg/dl (70-99) H 07/14/23 PT 11.7 Seconds (9.0-12.0) 07/14/23 PTT 29 Seconds (21-31) 07/14/23 INR 1.1 (0.9-1.1) 07/14/23 HA1c 6.8 % (4.5-5.6) H 06/15/23 Blood Type O Positive 06/15/23 Antibody Screen NEGATIVE 06/15/23 Testing Laboratory Results Elevated coags (including PTT) in setting of warfarin- Findings forwarded to PCP (Dr. Mcgovern) + cardiology (Dr. Rubio) for continuity of care/monitoring* Electrocardiogram Date: 10/22/22 NSR, rate 71 bpm Chest X-Ray Date: 06/15/23 No lines and tubes are seen. Calcified aortic knob is seen. The lungs are clear. No evidence of pleural effusion or pneumothorax. IMPRESSION: No acute chest disease. Stress Test Date: 01/01/23 Nuclear Gated SPECT imaging reveals normal myocardial thickening and wall motion. LVEF 60%. Lexiscan nuclear cardiac stress test negative for ischemia. 88%MPHR. Other Testing CTA Neck Date: 11/12/22 Moderate (50-57% by NASCET criteria) narrowing of the LICA origin by predominantly soft plaque. Moderate narrowing of the right vertebral artery origin by calcified plaque.
[~2023-07-15 10:07] MED LIST changes: +BUPIVACAINE 0.25% PF 30 ML VIAL ONE; -BUPIVACAINE LIPOSOME/PF 266 MG, BUPIVACAINE/EPINEPHRINE 50 ML, SODIUM CHLORIDE 0.9% 30 ... INFIL SCH; +BUPIVACAINE LIPOSOME/PF 266 MG, BUPIVACAINE/EPINEPHRINE 50 ML, SODIUM CHLORIDE 0.9% PF ... INFIL SCH; -CEFAZOLIN 2000MG 2,000 MG/15 ML SYR IV SCH; +CeleBREX 200 MG CAP PO SCH; -EPINEPHrine INJ 1 MG/ML AMP ONE; -GABAPENTIN 300 MG CAP PO SCH; -ROPIVACAINE 0.5% 5 MG/ML 30 ML VIAL ONE; +ceFAZolin 2000MG 2,000 MG/15 ML SYR IV SCH
[2023-07-15 10:50] LABS: INR 1.1 (0.9-1.1); Partial Thromboplastin Time 28 Seconds (21-31); Prothrombin Time 11.5 Seconds (9.0-12.0)
[2023-07-15] MEDS ORDERED: fentaNYL citrate PF 100 MCG/2 ML VIAL IV PRN (11:44)
[2023-07-15] MEDS ORDERED: ePHEDrine sulfate 50 MG/ML AMP IV PRN (11:44)
[2023-07-15] MEDS ORDERED: ATROPINE SULFATE 0.1 MG/ML 10ML SYR IV PRN (11:44)
[2023-07-15] MEDS ORDERED: ONDANSETRON INJ 2 MG/ML 2 ML VIAL IV PRN ×2 (11:44→15:39)
[2023-07-15] MEDS ORDERED: MIDAZOLAM HCL 1 MG/ML 2ML VIAL ONE (11:48)
[2023-07-15] MEDS ORDERED: LIDOCAINE 2% 2 ML VIAL/AMP(20MG/ML) INFIL ONE (11:49)
[2023-07-15] MEDS ORDERED: PROPOFOL IV EMULSION 10 MG/ML 20 ML VIAL IV ONE ×3 (11:49→13:36)
[2023-07-15] MEDS ORDERED: BUPIVACAINE LIPOSOME 1.3% 266 MG/20 ML VIAL ONE (11:55)
[2023-07-15] MEDS ORDERED: SODIUM CHLORIDE 0.9% PF 50 ML VIAL ONE (11:55)
[2023-07-15] MEDS ORDERED: BUPIVACAINE/EPINEPHRINE 0.25% 1:200,000 30 ML VIAL ONE (11:55)
--- NOTE | 2023-07-15 12:02 | History & Physical Bridge Note ---
Date of Service July 15, 2023 History & Physical Bridge Note I have examined the patient, reviewed the History & Physical and in the interval since the performance of the History & Physical I have noted the following changes of clinical significance: no changes noted
[2023-07-15] MEDS ORDERED: ONDANSETRON INJ 2 MG/ML 2 ML VIAL ONE (12:43)
--- NOTE | 2023-07-15 14:10 | Operative Report ---
PG Post Operative Report Pre & Post Diagnosis Operation Date: 07/15/23 12:00 Pre-Op Diagnosis: Degenerative Joint Disease, Left Knee Post-Op Diagnosis: Degenerative Joint Disease, Left Knee I identified the patient and participated in the time-out.: Yes Procedure Operation Date: 07/15/23 12:00 Actual Procedures p Left Total Knee Arthroplasty(Left) - Jace Vincent MD Surgeon Jace Vincent MD Animal Cytologist Maxx Ferrer PA-C Estimated Blood Loss 50 Findings Consistent with Post-Op Diagnosis Operative findings reveal advanced left knee medial compartment DJD with full- thickness cartilage loss of the medial compartment. The patient's body changes in the patellofemoral compartment. Fairly minimal lateral compartment disease. Moderate-sized joint effusion. Specimens Left knee sent for pathology. Complications none Disposition Accompanied Patient To Recovery: No Indications Patient is an 82-year-old gentleman whose had a very long history of bilateral knee pain discomfort. He had his right knee replaced about 4 years ago and done well with this. Continued Biovea left knee pain discomfort swelling. Failed conservative measures. He elected proceed with left total knee arthroplasty. Description of Procedure Operative implants consist of: 1. Biomet Vanguard size 70 left posterior by femoral component. 2. Biomet size 79 tibial tray. 3. 10 mm posterior stabilized polyethylene insert. 4. 31 x 8 all poly patella. The patient was taken the operating, identified, and placed on the operating table in the supine position. All contact areas were appropriately padded. IV antibiotics tried by anesthesia team. A spinal anesthetic and adductor canal block had provided in the holding area. A left thigh turn was then placed. Left lower extremities then prepped and draped in usual sterile fashion. The left leg was elevated exsanguinated with use of an Esmarch and a turn was placed at 300 mmHg. An anterior approach the left knee was then performed to longitudinal incision centered over the patella. Sharp dissection was carried through subcutaneous tissue down the extensor mechanism. A medial parapatellar arthrotomy incision was made. Some subperiosteal dissection was carried out medially. The fat pad was resected from Neath patella tendon. Lateral patellofemoral ligament was released. Patella subluxated laterally knee was flexed. The osteophytes taken on distal femur. The ACL and PCL were then released from distal femur the tibia subluxated anteriorly. The external tibial alignment jig was then placed in the interface the tibia and adjusted 14 mm medially. Proximal tibial cut was made remove about 2 to 3 mm of bone from the medial side. The tibia was then sized to a size 79. Attention drawn the femur. The distal femur examined the sharp drill. Intramedullary canal was suction. A left 6 degree valgus cutting guide was placed. Distal femoral cutting block was pinned in place. Distal femoral cut was made take an additional 3 mm bone off distal femur. The femur was then sized to a size 70. The AP cutting block was pinned parallel to the epicondylar axis which was 5 degrees of external rotation. Anterior cut, anterior chamfer, posterior cut, posterior chamfer cuts were made. The box cutting guide was placed in just slight lateral and the box cut was made. The knee was flexed. The remnants of the medial and lateral m enisci were excised. The osteophytes taken off the posterior aspect the femur. Trial femoral component was placed. The tibial tray was pinned Aury external rotation and the drill and stem punch used to create defect in proximal tibia for the tibial tray. The knee was then trialed and 10 mm insert fit most appropriately. Attention drawn the patella. The patella was cleaned of all soft tissues. Patella thickness measured 25 mm in thickness was cut down to 15. Was sized to a size 31 patella. The lug holes were drilled for 31 patella. The lateral osteophytes removed. Patella button was placed. Knee was taken through range of motion patella tracked nicely with no thumbs test. Attention drawn to place the permanent components. Nupathe all trial components were removed. Bone plug was placed in the distal femur limit blood loss. A double batch Palacos G cement was mixed. Biomet Vanguard size 70 left Po stabilized femoral component, size 79 tibial tray, 10 mm post stabilized polyethylene insert, and a 31 x 8 all Paller patella then cemented in place. The knee was brought out into full extension till cement hardened. Final cement check was then performed. Pericapsular tissues were injected with total 100 cc of combination of 20 cc of Exparel, 30 cc normal saline, 50 cc of quarter percent Marcaine with epinephrine. Patient did receive 1 g tranexamic acid. The tourniquet was let down for final treatment time 55 minutes. Hemostasis reduce electrocautery. The extensor Metros then closed with combination 1 PDS suture #1 Vicryl suture in a [id number] fashion. Extensor Meclomen checked and found to be intact and the subcutaneous tissue was then closed with 2 Dexon suture in a buried interrupted fashion skin was closed skin kyra. Leg was then cleaned and dried and sterile dressing was Xeroform, 4 x 4's, sterile ABD pad, sterile cast padding, Americo bandage. The patient was then transferred to the recovery room in stable condition. Patient tolerated the procedure well and there were no complications. Maxx Ferrer, my physician assistant clinical nurse manager, was present for the entire procedure. His assistance was essential and required for appropriate patient positioning, prepping and draping, surgical exposure, performing the technical details of the operation, placement the implants, closure of the wound, and placement of the sterile bandage. I attest to the content of the Intraoperative Record and any orders documented therein. Any exceptions are noted below.
[2023-07-15] MEDS ORDERED: WARFARIN SOD 2.5 MG TAB PO ONE (14:30)
[2023-07-15] MEDS ORDERED: WARFARIN SOD 10 MG TAB PO ONE (14:30)
--- NOTE | 2023-07-15 14:45 | Anesthesiology Progress Note ---
Date of Service July 15, 2023 Anesthesia Post Procedure Vital Signs Vital Signs: Temp Pulse Pulse Resp BP Pulse Ox O2 Del Method 07/15/23 14:30 75 14 128/63 92 Room Air 07/15/23 14:20 36.3 C L 79 20 119/59 L 93 Room Air 07/15/23 14:10 81 15 140/56 L 100 Oxymask 07/15/23 14:02 36.6 C 81 17 120/52 L 98 Oxymask 07/15/23 10:41 Room Air 07/15/23 10:41 36.7 C 72 20 151/97 H 95 Room Air O2 Flow Rate 07/15/23 14:30 07/15/23 14:20 07/15/23 14:10 11 07/15/23 14:02 11 07/15/23 10:41 07/15/23 10:41 Pain Intensity Left Knee: Pain Intensity: 0 Transfer of Care Handoff Completed per policy Notes Mental Status: alert / awake / arousable Patient Amnestic to Procedure: Yes Nausea / Vomiting: adequately controlled Pain: adequately controlled Airway Patency, RR, SpO2: stable & adequate BP & HR: stable & adequate Hydration State: stable & adequate Neuraxial Anesthesia: was administered and sensory block is resolving Anesthetic Complications: no major complications apparent and Pt Satisfied with anesthetic care
[2023-07-15] MEDS ORDERED: OXYMETAZOLINE 0.05% 30 ML BTL NAE PRN (15:39)
[2023-07-15] MEDS ORDERED: GLUCOSE 40% GEL 15 GM TUBE PO PRN (15:39)
[2023-07-15] MEDS ORDERED: CARBOHYDRATES FOR HYPOGLYCEMIA PO PRN (15:39)
[2023-07-15] MEDS ORDERED: DEXTROSE 50% 50 ML SYRINGE IV PRN (15:39)
[2023-07-15] MEDS ORDERED: PHARMACY GLYCEMIC MGMT CONSULT PRN (15:39)
[2023-07-15] MEDS ORDERED: HYDROmorphone INJ 0.5 MG/0.5 ML SYR IV PRN (15:39)
[2023-07-15] MEDS ORDERED: GLUCOSE 10 TAB/TUBE PO PRN (15:39)
[2023-07-15] MEDS ORDERED: METOCLOPRAMIDE HCL INJ 5 MG/ML 2 ML VIAL IV PRN (15:39)
[2023-07-15] MEDS ORDERED: oxyCODONE HCL IR 5 MG TAB (IMMEDIATE RELEASE) PO PRN (15:39)
[2023-07-15] MEDS ORDERED: NALOXONE HCL 0.4 MG/1 ML VIAL/CARP IV PRN (15:39)
[2023-07-15] MEDS ORDERED: LANCETS SCH (15:39)
[2023-07-15] MEDS ORDERED: MAGNESIUM HYDROXIDE SUSP 30 ML UDC PO PRN (15:39)
[2023-07-15] MEDS ORDERED: BLOOD GLUCOSE METER SCH (15:39)
[2023-07-15] MEDS ORDERED: bisacodyL 10 MG SUPP PR PRN (15:39)
[2023-07-15] MEDS ORDERED: BLOOD SUGAR DIAGNOSTIC SCH (15:39)
[2023-07-15] MEDS ORDERED: GLUCAGON FOR INJ 1 MG VIAL SQ PRN (15:39)
[2023-07-15] MEDS ORDERED: ALUMINUM/MAGNESIUM SUSP 30 ML UDC PO PRN (15:39)
--- NOTE | 2023-07-15 15:40 | XRay Report ---
XR knee LT 1 or 2V routine CLINICAL HISTORY: Postoperative evaluation. COMPARISON: Left knee radiographs April 02, 2023. FINDINGS: Alignment of the total left knee arthroplasty is anatomic. There is no periprosthetic frac ture or unexpected radiopaque foreign body. There are skin kyra. IMPRESSION: Expected findings following total left knee arthroplasty. ACT 112: Negative or not required by law. Electronically signed by: Eric Concepcion M.D. 07/15/2023 3:39 PM
[2023-07-15] MEDS: SODIUM CHLORIDE 0.9% 1,000 ML IV SCH (15:56)
[2023-07-15] MEDS: ACETAMINOPHEN 500 MG TAB PO SCH ×2 (16:02→21:31)
[2023-07-15] MEDS: KETOROLAC TROMETHAMINE 15 MG/ML VIAL IV SCH ×2 (17:12→21:31)
[2023-07-15] MEDS: ASCORBIC ACID 500 MG TAB PO SCH (17:12)
[2023-07-15] MEDS: INSULIN ASPART PER UNIT CHARGE SC SCH ×2 (17:13→21:28)
[2023-07-15] MEDS: ceFAZolin 2000MG 2,000 MG/15 ML SYR IV SCH (19:49)
[2023-07-15] MEDS ORDERED: TRANEXAMIC ACID / 0.7% NACL 1,000 MG/100 ML BAG IV SCH (20:15)
[2023-07-15] MEDS ORDERED: SENNA 8.6 MG TAB PO SCH ×2 (21:00)
[2023-07-15] MEDS ORDERED: amLODIPine BESYLATE 5 MG TAB PO SCH (21:00)
[2023-07-15] MEDS ORDERED: CHOLECALCIFEROL 1,000 UNITS 25 MCG TAB PO SCH (21:00)
[2023-07-15] MEDS ORDERED: LANTUS PER UNIT CHARGE SC SCH (21:00)
[2023-07-15] MEDS: DOCUSATE SODIUM 100 MG CAP PO SCH (21:31)
[2023-07-15] MEDS: FAMOTIDINE 20 MG TAB PO SCH (21:32)
[2023-07-15] MEDS: SODIUM CHLORIDE 0.65% NA SOLN 45 ML (OCEAN) NAE SCH (21:43)
--- NOTE | 2023-07-16 00:37 | Communication Note ---
Date of Service: July 16, 2023 Code radha called ~1280. Patient woke up and had to use the bathroom. When nursing came bedside and stood him up he felt dizzy/nauseas prompting them to lay him back down at which point he did vomit and had a loose BM in bed. He did not lose consciousness or hit his head. He was started on a 1L fluid bolus and when seen at bedside, he was feeling more like his baseline. Symptoms resolved. It was reported BP following episode fell to low 100s systolically but began to rise back up once layed down. Suspect episode had much to do with orthostasis/dehydration. Following 1L bolus, will continue back on maintenance fluids and monitor. Orthostatics ordered. Resident Activity Tracking Resident Involvement: Resident Care Provided Care Provided: Adult Hospital Medicine
[2023-07-16] MEDS: SODIUM CHLORIDE 0.9% 1,000 ML IV SCH (00:44)
[2023-07-16] MEDS: KETOROLAC TROMETHAMINE 15 MG/ML VIAL IV SCH ×2 (04:04→10:39)
[2023-07-16] MEDS: ceFAZolin 2000MG 2,000 MG/15 ML SYR IV SCH (04:05)
--- NOTE | 2023-07-16 07:21 | Surgery Progress Note ---
Date of Service July 16, 2023 Assessment & Plan (1) Status post left knee replacement: Plan: 82-year-old gentleman with multiple medical comorbidities now a postop day 1 from left knee replacement. He is doing quite well this morning. He had a vasovagal episode last evening. Very brief. No other concerning issues. No chest pain shortness of breath. He is feeling fine this morning. Pain controlled. He is neurologically intact. Plan: 1. DVT prophylaxis including thigh-high teds, SCDs, and back on his regular dose of Coumadin. 2. PT OT. Weight-bear as tolerated. Left total knee protocol. 3. Pain control doing okay with current pain regimen. 4. Vasovagal episode. He seems recovered from this. He looks great this morning. Will see how he does in therapy. 5. Disposition plan to discharge home with some home health will. Will see how he does in therapy this morning. Admission and Anticipated Discharge Date Admission Date: July 15, 2023 Subjective 82-year-old gentleman now postop day 1 from a left knee replacement. He is doing quite well this morning. Apparently had a vasovagal episode last evening. He apparently passed out in bed. He also had an emesis at the time. He has been fine since then. Denies any chest pain or shortness of breath. Pains been manageable. No other complaints. He is hoping to go home today. Physical Exam Physical Exam: Physical examination was a pleasant elderly male. He is lying in bed. Awake alert and oriented looks quite comfortable this morning. Examination of the left leg reveals leg to be well aligned. Dressings clean dry and intact he can dorsiflex and plantarflex his foot appropriately. He is neurologically intact. Respiratory: normal respiratory effort, lungs clear to auscultation Cardiovascular: RRR, no murmur, no edema Gastrointestinal (Abdomen): normal bowel sounds, soft, nontender, no hepatosplenomegaly Results & Data Vital Signs (Past 12 Hours) Vital Signs Temp Pulse Resp BP Pulse Ox O2 Del Method 07/16/23 04:10 36.6 C 81 16 126/73 95 Room Air 07/15/23 22:35 36.8 C 99 H 18 131/69 95 CPAP 07/15/23 19:20 36.4 C L 81 16 157/82 H 94 Room Air Laboratory Results Labs are currently pending PG Care Time/CCT Total # of Minutes Spent Total Time Spent with Patient: Total time spent is greater than 50% in coordination of care (as documented) at patient's floor/unit and/or counseling patient: Coding Level of Care Code 16816 Post Operative Follow-Up Diagnoses Status post left knee replacement Z96.652
[2023-07-16 07:35] LABS: Hematocrit (blood only) 34.1 % (42.0-52.0); Hemoglobin 11.6 g/dl (14.0-18.0); Mean Corpuscular Hemoglobin 30.5 pg (25.0-34.0); Mean Corpuscular Volume 89.7 fL (80.0-100.0); Platelet Count 296 K/uL (130-400); RDW Coefficient of Variation 13.3 % (11.5-14.5); RDW Standard Deviation 43.9 fL (36.4-46.3); White Blood Count 19.36 K/ul (4.8-10.8)
[2023-07-16 07:44] LABS: BUN Creatinine Ratio 21.6 (10-20); Calcium 7.8 mg/dl (8.6-10.3); Creatinine Clr Calc Pharmacy 63.5 ml/min; Est GFR (African American) 79.5 ml/min; Est GFR (Non-African American) 68.6 ml/min; Potassium 4.4 mmol/L (3.5-5.1)
[2023-07-16] MEDS ORDERED: dexAMETHasone 4 MG TAB PO SCH (08:00)
[2023-07-16 08:06] LABS: INR 1.1 (0.9-1.1); Prothrombin Time 12.4 Seconds (9.0-12.0)
[2023-07-16] MEDS: INSULIN ASPART PER UNIT CHARGE SC SCH (08:25)
[2023-07-16] MEDS: ACETAMINOPHEN 500 MG TAB PO SCH (08:29)
[2023-07-16] MEDS: ASCORBIC ACID 500 MG TAB PO SCH (08:29)
[2023-07-16] MEDS: DOCUSATE SODIUM 100 MG CAP PO SCH (08:29)
[2023-07-16] MEDS: FAMOTIDINE 20 MG TAB PO SCH (08:30)
[2023-07-16] MEDS: SODIUM CHLORIDE 0.65% NA SOLN 45 ML (OCEAN) NAE SCH (08:32)
--- NOTE | 2023-07-16 08:55 | Discharge Summary ---
Date of Service July 16, 2023 Principal Diagnosis Same as "Discharge Diagnosis" noted below under Discharge Instructions. Discharge Exam Physical examination was a pleasant elderly male. He is lying in bed. Awake alert and oriented looks quite comfortable this morning. Examination of the left leg reveals leg to be well aligned. Dressings clean dry and intact he can dorsiflex and plantarflex his foot appropriately. He is neurologically intact. Discharge Data Procedures Performed Operation Date: 07/15/23 12:00 Actual Procedures p Left Total Knee Arthroplasty(Left) - Jace Vincent MD Ordered Studies 07/15/23 05:00 US - OR guided needle placemen Routine 07/15/23 12:01 US - OR guided needle placemen Routine Hospital Course (1) Status post left knee replacement: On July 15, 2023 Campbell arrived at [facility] and underwent a left total knee arthroplasty performed by Dr. Vincent with no complications. He had a spinal anesthetic. Postoperatively, he was restarted on his warfarin for DVT prophylaxis and transferred to the general orthopedic floor in stable condition. Later on postoperative day #0, he did experience an episode of orthostatic hypotension/vasovagal episode upon standing to use the restroom. This was treated with 1 L fluid bolus at bedside in which after his symptoms resolved and no other significant events occurred. On postoperative day #1, his vital signs were stable and his pain was well-controlled. He participated well with physical therapy working on ambulation and range of motion exercises. He was then discharged home in stable condition. He is going to follow-up with Dr. Vincent in 2 weeks for postoperative care. PG Care Time/CCT Total # of Minutes Spent Total Time Spent with Patient: Total time spent is greater than 50% in coordination of care (as documented) at patient's floor/unit and/or counseling patient: Discharge Plan Discharge Items Patient Disposition: Transfer Long Term Fac Reason For Visit: LEFT KNEE REPLACEMENT Discharge Diagnosis: Left Knee Replacement Activity: Per Instructions section Weightbearing: Full weightbearing Non-emergency contact: Surgeon Call non-emergency contact if: you have any medication questions Follow-up/Referrals: Gabriel Mcgovern DO [Primary Care Provider] - Diet: Carb Consistent or DM2 Addtl Attending Provider Instructions: ACTIVITY RECOMMENDATIONS: Physical Therapy: * You will go to physical therapy three times each week for four to six weeks after your surgery in order to regain your knee range of motion and to retrain your knee to work properly. * It is just as important to make sure you are getting your knee perfectly straight as it is to regain your knee bend. * Taking a pain pill an hour before therapy can help you have a more productive and comfortable therapy session. Home Exercise: * You were shown a series of exercises (heel props, heel slides, etc.) in the hospital. Do these exercises three to four times each day including the exercises you were shown in physical therapy. Walking: * Get up and walk several times each day. For the first four weeks, try not to stand or walk for more than one hour at a time. If you do stand or walk for more than one hour, you will not hurt anything, but your knee and leg will likely swell. * As you feel comfortable, you may change from the walker or crutches to a cane and then to independent walking. MEDICATIONS: New Medicine: * You will likely be taking one or more of these medications: 1. Oxycodone - A quick and shorter-acting pain medication. Take one to two tablets every six hours to lessen your pain. 2. Aspirin - Thins your blood to lessen the chance of forming a blood clot. * The most common side effects of pain medicine and iron are nausea and constipation. If nausea or constipation is too much of a problem or if you have any questions about your new medicines or doses, call [facility] at . We will try to help you manage these issues. "VERY IMPORTANT TO READ AND REVIEW" Pain: * The immediate post-operative period after knee replacement surgery is often quite painful. * You are given a prescription for pain medicine. You should take it, as directed, when you need it, especially before physical therapy and before going to bed. Pain that interferes with sleep is very common and can last several months. * You will likely need pain medicine for the first four to six weeks. It will not stop all of the pain. The pain will lessen and as you feel better, you may change to milder pain medicine such as Tylenol. * The most common side effects of pain medicine are nausea and constipation, so don't take more than you need. SPECIAL CARE INSTRUCTIONS: TEDs/Elastic Stockings: * The white elastic stockings help limit swelling and prevent blood clots from forming in your legs. The more you wear them, the more they work. * Wear them for six weeks after knee replacement surgery and four weeks after partial knee replacement. Incision Site Care: * Remove dressing postoperative day 2 and then shower. Keep direct shower pressure off the incision site. * After showering, cover kyra with dry gauze and change daily or more frequently if the dressing is getting saturated with drainage. * Use the XOCHITL stockings to hold dressing in place. DO NOT apply tape on the skin. * May completely stop using bandage if wound is dry and no drainage * Kyra are removed between 2 and 3 weeks post-op. If your follow-up appointment is made before 2 weeks, please have your appointment re- scheduled. It is too early to remove the kyra. Prevention of Infection: * Take antibiotics one hour before any dental cleaning, dental work, urological procedure, gastrointestinal procedure or any invasive surgery in order to prevent your new joint from getting infected. * You may get the antibiotics from the doctor performing the procedure or you may call our office at [phone] before and we will call in a prescription to the pharmacy of your choice. Things to Watch For: * Drainage from the incision site that occurs more than one week after your surgery. * Severely increased knee/leg pain or swelling. * Increased redness at the incision site. * Fever above 102 degrees Fahrenheit. * Unusual chest pain or shortness of breath. * Unusual pain or burning with urination. Call [facility] at [phone] with any of the above problems or if you have any questions about your medicines or recovery. FOLLOW UP VISIT: Make an appointment to see your doctor for approximately two weeks after surgery for a progress check and staple removal by calling the office at [phone]. Pending Studies at Discharge: No Stand-Alone Forms: My [facility] Skilled Items Patient informed of condition?: Yes DNR: No Discharge Level of Care: Skilled Communicable Disease: No Discharge Prognosis: Improving Lines: None Urinary Catheter: No Medications and DC Order Prescriptions: Continued (DME) lancets [FreeStyle Lancets] 28 gauge misc See Rx Instructions .ROUTE .MEDSUPPLY Qty: 2 3RF Rx Instructions: Test twice a day (DME) CPAP Machine Misc See Rx Instructions .MEDSUPPLY Qty: 1 0RF Rx Instructions: CPAP 5-15 cm water pressure with heated humidifcation, tubing, and suppies. STEPHAN: 99+ years. (DME) blood-glucose meter [FreeStyle Lite Meter] Kit See Rx Instructions .ROUTE .MEDSUPPLY Qty: 1 0RF Rx Instructions: As directed Gordon Saline Gel 1 applic topical HS PRN (Reason: dry nasal passages) Qty: 14.1 0RF Saline Nasal 0.65 % aerosol,spray 2 spray intranasal BID Qty: 44 0RF warfarin 5 mg tablet 7.5 - 10 mg PO UD Qty: 180 3RF Protocol: Dose Management Condition: Thursday Dose/Route: 10 mg Instruction: 2 x 5 mg tablets Condition: Thursday Dose/Route: 10 mg Instruction: 2 x 5 mg tablets Condition: Thursday Dose/Route: 10 mg Instruction: 2 x 5 mg tablets Condition: Thursday Dose/Route: 10 mg Instruction: 2 x 5 mg tablets Condition: Dose/Route: 10 mg Instruction: 2 x 5 mg tablets Condition: Thursday Dose/Route: 10 mg Instruction: 2 x 5 mg tablets Condition: Thursday Dose/Route: 10 mg Instruction: 2 x 5 mg tablets Protocol Text: Adjustment Start Date: 07/02/23 INR Value: 2.1 INR Date: 07/02/23 Recheck Date: 07/16/23 Patient Comments: currently taking 10mg in QAM Rx Instructions: DIRECTED BY [facility] (DME) FreeStyle Lite Strips Strip See Rx Instructions .ROUTE .MEDSUPPLY Qty: 2 3RF Rx Instructions: Test twice a day metformin 500 mg tablet extended release 24 hr 1,000 mg PO BID Qty: 360 3RF diclofenac sodium [Voltaren Arthritis Pain] 1 % gel 2 g topical TID PRN (Reason: knee pain) Qty: 100 3RF losartan 100 mg tablet 100 mg PO QAM Qty: 90 3RF sennosides [Senokot] 8.6 mg tablet 8.6 mg PO BID 14 Days Qty: 28 0RF Rx Instructions: Take two times a day to prevent/treat constipation acetaminophen [Tylenol Extra Strength] 500 mg tablet 1,000 mg PO TID 30 Days Qty: 180 0RF Rx Instructions: Take 3 times per day to lessen pain cefadroxil 500 mg capsule 500 mg PO BID 7 Days Qty: 14 0RF Patient Comments: post op Rx Instructions: Take 1 cap twice a day to prevent infection tamsulosin [Flomax] 0.4 mg capsule 0.4 mg PO DAILY Qty: 7 0RF Rx Instructions: Begin night BEFORE surgery to prevent urinary retention ondansetron 4 mg tablet,disintegrating 4 mg PO Q8 PRN (Reason: nausea) Qty: 20 1RF Patient Comments: post op Rx Instructions: Take as needed for nausea oxycodone 5 mg tablet 5 - 10 mg PO Q6 PRN (Reason: pain) Qty: 40 0RF Patient Comments: post op Rx Instructions: Take as needed for pain aspirin 81 mg Tablet,Delayed Release (Dr/Ec) 81 mg PO QAM oxymetazoline 0.05 % [place],Non-Aerosol 2 spray INTRANASAL Q12H PRN (Reason: Congestion) amlodipine 5 mg tablet 5 mg PO HS fluticasone propionate 50 mcg/actuation spray,suspension 2 spray intranasal QAM Rx Instructions: administer into each nostril cholecalciferol (vitamin D3) 25 mcg (1,000 unit) capsule 25 mcg PO HS rosuvastatin 10 mg tablet 10 mg PO QAM semaglutide 7 mg tablet 7 mg PO QAM famotidine 20 mg Tablet 20 mg PO BID Discharge Orders: Discharge Order (Routine); Ordered 07/16/23 Ordered By: Jace Vincent Admission Data Admit Date/Time: 07/15/23 14:06 Attending Provider: Jace Vincent Admit Provider: Jace Vincent Primary Care Provider: Gabriel Mcgovern
[2023-07-16] MEDS ORDERED: LANTUS PER UNIT CHARGE SC SCH (09:00)
[2023-07-16] MEDS ORDERED: ROSUVASTATIN CALCIUM 10 MG TAB PO SCH (09:00)
[2023-07-16] MEDS ORDERED: MULTIVITAMIN TAB PO SCH (09:00)
[2023-07-16] MEDS ORDERED: TAMSULOSIN HCL 0.4 MG CAP PO SCH (09:00)
[2023-07-16] MEDS ORDERED: ASPIRIN 81 MG ECTAB PO SCH (09:00)
[2023-07-16] MEDS ORDERED: SEMAGLUTIDE 7 MG PO SCH (09:00)
[2023-07-16] MEDS ORDERED: FLUTICASONE PROPIONATE NA SPR 16 GM BTL NAE SCH (09:00)
[2023-07-16] MEDS ORDERED: LOSARTAN POTASSIUM 50 MG TAB PO SCH (09:00)
[2023-07-16] MEDS ORDERED: WARFARIN SOD 10 MG TAB PO SCH (16:00)
== END 2023-07-16 11:15 ==
LOC: 3E 10:07 → ASU 10:07